=== PATIENT | female | born 2000 | race Caucasian/White ===

== ENCOUNTER 2018-02-10 23:01 | Emergency (ER) | payer OTHER ==
[~2018-02-10] VITALS: Ht 157.5 cm; Wt 64.6 kg
[2018-02-11 00:11] VITALS: Ht 157.5 cm; Wt 64.6 kg
[2018-02-11 01:23] VITALS: BP 132/91
== END 2018-02-11 01:23 | disposition home or self-care (01) ==
LOC: ED 23:01
DX: R10.9 Unspecified abdominal pain (principal); R11.2 Nausea with vomiting, unspecified; R19.7 Diarrhea, unspecified
CPT/HCPCS: J1885; Q0162

== ENCOUNTER 2018-08-25 20:29 | Emergency (ER) | payer OTHER ==
[~2018-08-25] VITALS: Ht 160 cm; Wt 62.1 kg
[2018-08-25 20:49] VITALS: Ht 160 cm; Wt 62.1 kg
[2018-08-25 22:35] VITALS: BP 122/57
== END 2018-08-25 22:35 | disposition home or self-care (01) ==
LOC: ED 20:29
DX: R51 Headache (principal)
CPT/HCPCS: J1885

== ENCOUNTER 2018-09-21 19:59 | Emergency (ER) | payer OTHER ==
[~2018-09-21] VITALS: Ht 157.5 cm; Wt 62.1 kg
[2018-09-21 20:28] VITALS: Ht 157.5 cm; Wt 62.1 kg
[2018-09-22 00:40] VITALS: BP 122/68
== END 2018-09-22 00:40 | disposition home or self-care (01) ==
LOC: ED 19:59
DX: B34.9 Viral infection, unspecified (principal)
CPT/HCPCS: 87804; J1885; J7030

== ENCOUNTER 2019-07-12 21:43 | Emergency (ER) | payer OTHER ==
[~2019-07-12] VITALS: Ht 160 cm; Wt 61.5 kg
[2019-07-12 22:07] VITALS: Ht 160 cm; Wt 61.5 kg
[2019-07-12 23:23] LABS: BASOPHIL % 0.1 % (0-2); PLATELET COUNT 176 x10^3mcL (130-400); RED CELL DISTRIBUTION WIDTH 12.9 % (11.5-14.5)
[2019-07-12 23:28] LABS: CALCIUM 8.5 mg/dL (8.5-10.1); CARBON DIOXIDE 26.2 mmol/L (21-32); CHLORIDE SERUM 102 mmol/L (98-107); CREATININE SERUM 0.6 mg/dL (0.6-1.0); GFR1 > 60 mL/min; GLUCOSE SERUM 116 mg/dL (74-106); POTASSIUM SERUM 3.6 mmol/L (3.5-5.1); SODIUM SERUM 139 mmol/L (136-145)
[2019-07-12 23:33] LABS: ALKALINE PHOSPHATASE 79 U/L (46-116); ALT/SGPT 21 U/L (14-59); AST/SGOT 14 U/L (15-37); BILIRUBIN TOTAL 0.4 mg/dL (0.20-1.00); LIPASE 128 IU/L (73-393); TOTAL PROTEIN, SERUM 8.1 g/dL (6.4-8.2)
[2019-07-13 03:22] VITALS: BP 110/59
== END 2019-07-13 03:22 | disposition home or self-care (01) ==
LOC: ED 21:43
PROVIDERS: Emergency Medicine
DX: K52.9 Noninfective gastroenteritis and colitis, unspecified (principal)
CPT/HCPCS: J1885; J2405; J7030; Q0162